=== PATIENT | male | born 1995 | race Caucasian/White ===

== ENCOUNTER → 2018-07-21 | Outpatient (CLI) | payer OTHER ==
[~2018-07-21] MED LIST: AMPH20TA2 PO; CITA20TA9 PO; CLON0.1T PO; LITH150C PO
== END | disposition home or self-care (01) ==
LOC: CFH 13:03
PROVIDERS: ATTEND Registered Nurse
DX: S09.90XA Unspecified injury of head, initial encounter (principal); X58.XXXA Exposure to other specified factors, initial encounter; Y93.89 Activity, other specified; Y92.89 Other specified places as the place of occurrence of the external cause; Y99.8 Other external cause status
CPT/HCPCS: 70450

== ENCOUNTER 2019-11-21 19:52 | Emergency (ER) | payer OTHER ==
[~2019-11-21] VITALS: Ht 170.2 cm; Wt 64.5 kg
[~2019-11-21 19:52] MED LIST changes: -CLON0.1T PO; +CLON0.1T22 PO
--- NOTE | 2019-11-21 20:22 | NUR ---
Attempted to call pt back@this time. NIL.
[2019-11-21 20:28] VITALS: BP 134/85
[2019-11-21] MEDS ORDERED: LIDOCAINE 1%, 10ML INFIL ONE (20:30)
[2019-11-21] MEDS ORDERED: LIDOCAINE-MPF 1%, 5ML ONE (20:44)
[2019-11-21] MEDS ORDERED: NAPR220T77 PO (20:47)
[2019-11-21] MEDS ORDERED: KETOROLAC 30 MG/1 ML IM ONE (23:00)
--- NOTE | 2019-11-22 00:05 | NUR ---
Patient/Caregiver given discharge instructions and they have confirmed that they understand the instructions. Patient ambulatory with steady gait.
== END 2019-11-22 00:07 | disposition home or self-care (01) ==
LOC: ED 20:52
DX: S01.01XA Laceration without foreign body of scalp, initial encounter (principal); S01.112A Laceration without foreign body of left eyelid and periocular area, initial encounter; S40.011A Contusion of right shoulder, initial encounter; S50.11XA Contusion of right forearm, initial encounter; S09.90XA Unspecified injury of head, initial encounter; W11.XXXA Fall on and from ladder, initial encounter; Y93.89 Activity, other specified; Y92.009 Unspecified place in unspecified non-institutional (private) residence as the place of occurrence of the external cause; Y99.8 Other external cause status
CPT/HCPCS: 12031; 12051; 70450; 99285

== ENCOUNTER 2019-12-31 11:24 | Emergency (ER) | payer OTHER ==
[~2019-12-31] VITALS: Ht 172.7 cm; Wt 61.9 kg
[~2019-12-31 11:24] MED LIST changes: +NAPR220T77 PO
[2019-12-31] MEDS ORDERED: KETOROLAC 30 MG/1 ML ONE (11:45)
[2019-12-31] MEDS ORDERED: ONDANSETRON 2MG/ML, 2ML ONE (11:45)
[2019-12-31] MEDS ORDERED: SODIUM CHLORIDE FLUSH 10ML SYR IVF ONE (12:00)
[2019-12-31] MEDS ORDERED: ONDANSETRON 2MG/ML, 2ML IVPush ONE (12:00)
[2019-12-31] MEDS ORDERED: KETOROLAC 30 MG/1 ML IVPush ONE (12:00)
[2019-12-31 12:12] LABS: BASOPHILS # (AUTO) 0.02 x10^3/uL (0-0.1); BASOPHILS % (AUTO) 0 % (0-1); EOSINOPHILS # (AUTO) 0.18 x10^3/uL (0-0.4); EOSINOPHILS % (AUTO) 3 % (1-7); LYMPHOCYTES # (AUTO) 1.96 x10^3/uL (1-3.4); LYMPHOCYTES % (AUTO) 28 % (22-44); MD NO; MEAN CORPUSCULAR HEMOGLOBIN 30.1 pg (27.5-34.5); MEAN CORPUSCULAR HGB CONC 33.6 g/dL (33.2-36.2); MEAN CORPUSCULAR VOLUME 89.4 fL (81-97); MEAN PLATELET VOLUME 8.9 fL (7.4-10.4); MONOCYTES # (AUTO) 0.31 x10^3/uL (0.2-0.8); MONOCYTES % (AUTO) 5 % (2-9); NEUTROPHILS # (AUTO) 4.57 x10^3/uL (1.8-6.8); NEUTROPHILS % (AUTO) 65 % (42-75); PLATELET COUNT 163 x10^3/uL (130-400); RED BLOOD COUNT 4.89 x10^6/uL (4.38-5.82); RED CELL DISTRIBUTION WIDTH 12.8 % (9.4-14.8)
[2019-12-31 12:13] LABS: MICROSCOPIC NOT IND
[2019-12-31 12:14] LABS: CULTURE INDICATED? NO
[2019-12-31 12:24] LABS: ALANINE AMINOTRANSFERASE 20 U/L (12-78); ALBUMIN 3.9 g/dL (3.4-5.0); ANION GAP 7 mmol/L (5-15); CALCIUM 9.2 mg/dL (8.5-10.1); CHLORIDE 113 mmol/L (98-107); CREATININE 0.95 mg/dL (0.7-1.3)
[2019-12-31 12:26] LABS: ALKALINE PHOSPHATASE 154 U/L (45-117); BILIRUBIN,TOTAL 0.2 mg/dL (0.2-1.0); TOTAL PROTEIN 6.2 g/dL (6.4-8.2)
[2019-12-31] MEDS ORDERED: HYDROmorphone 1 MG/ML, 1ML INJ ONE (13:25)
--- NOTE | 2019-12-31 13:28 | NUR ---
PT RERPORTS PAIN RELIEF FROM MEDICATION
[2019-12-31] MEDS ORDERED: HYDROmorphone 2 MG/ML, 1ML IVPush PRN (13:30)
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
[2019-12-31] MEDS ORDERED: OXYcodone/APAP 5/325MG TABLET ONE (14:56)
[2019-12-31] MEDS ORDERED: OXYcodone/APAP 5/325MG TABLET PO ONE (15:00)
[2019-12-31 15:27] VITALS: BP 111/78
== END 2019-12-31 15:30 | disposition home or self-care (01) ==
LOC: ED 11:44
DX: N13.2 Hydronephrosis with renal and ureteral calculous obstruction (principal); R10.32 Left lower quadrant pain
CPT/HCPCS: 36415; 74176; 76770; 80053; 81003; 85025; 96374; 96375; 99285; J1170; J1885; J2405

== ENCOUNTER 2020-03-30 11:28 | Emergency (ER) | payer OTHER ==
[~2020-03-30] VITALS: Ht 170.2 cm; Wt 62.0 kg
[2020-03-30 11:39] VITALS: BP 144/89
[2020-03-30] MEDS ORDERED: LIDOCAINE-MPF 1%, 5ML ONE (11:56)
== END 2020-03-30 12:40 | disposition home or self-care (01) ==
LOC: ED 12:15
DX: S31.114A Laceration without foreign body of abdominal wall, left lower quadrant without penetration into peritoneal cavity, initial encounter (principal); W26.0XXA Contact with knife, initial encounter; Y93.89 Activity, other specified; Y92.488 Other paved roadways as the place of occurrence of the external cause; Y99.8 Other external cause status
CPT/HCPCS: 12031; 99284

== ENCOUNTER 2020-06-26 15:17 | Emergency (ER) | payer OTHER ==
[~2020-06-26] VITALS: Ht 172.7 cm; Wt 62.5 kg
[2020-06-26] MEDS ORDERED: DIPH,PERTUSS(ACELL),TET VAC/PF 0.5 ML IM-VACC ONE (16:00)
--- NOTE | 2020-06-26 16:54 | NUR ---
[employer]: PT TO ROOM FROM LOBBY
[2020-06-26 17:04] VITALS: BP 138/85
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
--- NOTE | 2020-06-26 17:23 | NUR ---
Pt received tDAP in 2018
--- NOTE | 2020-06-26 17:29 | NUR ---
Lac cleaned, no bleeding.
[2020-06-26] MEDS ORDERED: NEOSPORIN OINT. PKT 1 PACKET ONE (17:42)
== END 2020-06-26 18:15 | disposition home or self-care (01) ==
LOC: ED 17:30
DX: S09.90XA Unspecified injury of head, initial encounter (principal); R42 Dizziness and giddiness; X58.XXXA Exposure to other specified factors, initial encounter; Y93.89 Activity, other specified; Y92.69 Other specified industrial and construction area as the place of occurrence of the external cause; Y99.0 Civilian activity done for income or pay
CPT/HCPCS: 70450; 70480; 99285